=== PATIENT | male | born 1975 | race Caucasian/White ===

== ENCOUNTER 2021-12-27 10:13 | Emergency (ER) | payer BC | END 2021-12-27 10:59 | disposition home or self-care (01) | LOC: JP.ED 10:13 | DX: L24.0 Irritant contact dermatitis due to detergents (principal); I25.10 Atherosclerotic heart disease of native coronary artery without angina pectoris; Z79.82 Long term (current) use of aspirin; Z79.899 Other long term (current) drug therapy; Z87.891 Personal history of nicotine dependence | CPT/HCPCS: 99282; 99283 ==

== ENCOUNTER 2023-10-06 06:27 | Day surgery (SDC) | payer OTHER ==
[2023-10-06 06:38] LABS: BASOPHILS ABSOLUTE AUTO 0.03 K/uL (0.00-0.10); BASOPHILS PERCENT AUTO 0.4 % (0.1-1.3); EOSINOPHILS ABSOLUTE AUTO 0.33 K/uL (0.00-0.40); EOSINOPHILS PERCENT AUTO 3.9 % (0.0-5.4); HEMATOCRIT 42.8 % (38.4-49.7); HEMOGLOBIN 14.3 g/dL (12.9-16.9); IMMATURE GRAN ABSOLUTE AUTO 0.04 K/uL (0.00-0.23); IMMATURE GRAN PERCENT AUTO 0.5 % (0.0-0.7); LYMPHOCYTES ABSOLUTE AUTO 2.04 K/uL (0.8-3.3); LYMPHOCYTES PERCENT AUTO 23.9 % (11.4-47.7); MEAN CORPUSCULAR HEMOGLOBIN 31.5 pg (31.6-35.5); MEAN CORPUSCULAR HGB CONC 33.4 g/dL (31.6-35.5); MEAN CORPUSCULAR VOLUME 94.3 fL (81.4-99.0); MONOCYTES ABSOLUTE AUTO 0.57 K/uL (0.20-0.90); MONOCYTES PERCENT AUTO 6.7 % (3.3-12.6); NEUTROPHILS ABSOLUTE AUTO 5.54 K/uL (1.0-7.6); NEUTROPHILS PERCENT AUTO 64.6 % (40.0-78.1); PLATELET COUNT,PLT 243 K/uL (130-375); RED BLOOD CELL COUNT 4.54 M/uL (4.14-5.76); WHITE BLOOD CELL COUNT,WBC 8.6 K/uL (3.2-11.0)
[2023-10-06 07:28] LABS: ANION GAP 9.4 mmol/L (5.0-14.0); CALCIUM 8.1 mg/dL (8.5-10.1); CREATININE 0.9 mg/dL (0.8-1.3); EST CRCL DRUG DOSING (CG) 91.81 mL/min; POTASSIUM,K 4.5 mmol/L (3.6-5.2)
[2023-10-06] MEDS ORDERED: Bupivacaine 0.5% 30 ML SDV ONE (07:39)
[2023-10-06] MEDS ORDERED: Sodium Chloride 0.9% 1,000 ML IV SCH (08:00)
[2023-10-06] MEDS ORDERED: ceFAZolin 2 GM in Premix Bag 1 BAG IV ONE (08:30)
[2023-10-06] MEDS ORDERED: Succinylcholine 200 MG/10 ML MDV ONE (09:01)
[2023-10-06] MEDS ORDERED: Rocuronium 50 MG/5 ML Vial ONE (09:01)
[2023-10-06] MEDS ORDERED: Propofol 200 MG/20 ML SDV ONE (09:01)
[2023-10-06] MEDS ORDERED: Dexamethasone 4 MG/ML SDV ONE (09:01)
[2023-10-06] MEDS ORDERED: fentaNYL 250 MCG/5 ML SDV ONE (09:01)
[2023-10-06] MEDS ORDERED: Ondansetron 4 MG/2 ML SDV ONE (09:01)
[2023-10-06] MEDS ORDERED: fentaNYL 100 MCG/2 ML SDV ONE ×2 (09:40→09:45)
[2023-10-06] MEDS ORDERED: Acetaminophen/HYDROcodone 325-5 MG Tab PO PRN (11:03)
== END 2023-10-06 12:44 | disposition home or self-care (01) ==
LOC: JP.ED 06:27 → JP.SDS 07:55
PROVIDERS: ATTEND Specialist
DX: S52.301A Unspecified fracture of shaft of right radius, initial encounter for closed fracture (principal); J44.9 Chronic obstructive pulmonary disease, unspecified; I25.10 Atherosclerotic heart disease of native coronary artery without angina pectoris; Z20.822 Contact with and (suspected) exposure to COVID-19
CPT/HCPCS: 25515; 36415; 73090-26-LT; 73090-LT; 73120-26-LT; 73120-LT; 80048; 85025; 93010; 99284; A9270-GY; C1713; C1776; J0330; J0690; J1100; J2405; J2704; J3010; J3490; J7030; U0002